=== PATIENT | female | born 2000 | race Caucasian/White ===

== ENCOUNTER 2024-02-19 10:22 | Emergency (ER) | payer SELFPAY ==
[2024-02-19 10:30] VITALS: BP 117/70; PULSE 100; RESP 20; TEMP 36.6; O2SAT 98; BMI 31.6
--- NOTE | 2024-02-19 10:47 | ED_ITS ---
HPI - Seizure General Time Seen by Provider: 10:47 Date Seen: 02/19/24 Chief Complaint: Seizure Stated Complaint: seizure Time Seen by Provider: 02/19/24 10:43 Source: patient, family, RN notes reviewed, old records reviewed and spanish interpreter Mode of arrival: ambulatory Limitations: no limitations History of Present Illness HPI Narrative: 24-year-old female with history of seizure disorder who presents with seizure. Patient was seen through the spanish interpreter. Patient reports history of seizure disorder, reports she had 3 seizures today. Denies falls or injuries. Says that she has not been taking her Keppra for the last couple of days because she ran out. She has a bottle of Keppra with her the does have some pills in it, these are 750 mg tablets with instructions to take 2 tablets twice a day (1500 mg twice a day) and she does have some pills left, the date on this bottle is from January 04. Patient reports that she had another bottle of Keppra at a higher dose which was started recently but she ran out of those and has not been taking either medication for 2 days. These are her typical seizures. She complains of some neck pain, chest achiness, and headache which is not unusual after seizures for her. Related Data Previous Rx's ?Medication ?Instructions ?Recorded levetiracetam 1,000 mg tablet 2,000 mg (2 x 1,000 mg) PO BID 02/19/24 (Keppra) #120 tabs Allergies Allergy/AdvReac Type Severity Reaction Status Date / Time Penicillins Allergy Intermediate Difficulty Verified 02/19/24 10:27 Breathing Exam Narrative: Exam Narrative: General: Well-developed and well-nourished, no acute distress Head: Atraumatic and normocephalic Eyes: Pupils are equal reactive, extraocular motions intact, conjunctiva clear ENT: External nose and ears are normal, posterior pharynx without erythema or exudate Neck: No midline cervical tenderness, full spontaneous range of motion the neck, trachea midline, no adenopathy Heart: Regular rate and rhythm no murmurs or thrills Lungs: Clear to auscultation bilaterally without wheezes or crackles Abdomen: Soft, nontender, nondistended with active bowel sounds Musculoskeletal: No tenderness, deformity, or edema Neurologic: Awake, alert, and oriented x3, no gross focal neurologic deficits, cranial nerves intact as tested. Occasional myoclonic jerks but no consistent seizure activity. Psych: Mood and affect are appropriate Skin: No rashes Const: Vital Signs, click to edit/add: Vital Signs - 24 hr 02/19/24 10:30 Temperature 98 F Pulse Rate [Pulse Oximeter] 100 Respiratory Rate 20 Blood Pressure [Ri ght Upper Arm] 117/70 Pulse Oximetry 98 Course Course ED Course: Reviewed prior hospital admission from February 2023 which was for seizures, at that time patient was in her 2nd trimester and Keppra was increased to 1000 mg twice a day, follow-up with neurology with plan for EEG as an outpatient. Patient presents today with 3 seizures today. It appears her usual seizure pattern is about once a month. She says her seizures are brought on by ?stress? and also notes that she has not taken her seizure medicine for 2 days. On exam here, patient is mildly tachycardic but otherwise finally stable. She is awake and alert, no focal neurologic deficits, occasional generalized myoclonic movements predominantly of the upper extremities. Labs ordered to evaluate for other cause of patient's seizures although most likely this is related to medication noncompliance. Patient will be loaded with Keppra in the emergency department and prescription will be written. Patient will need to follow-up with neurology clinic, has been seen by [facility] in the past. EKG independently interpreted by me performed at 10:53 a.m. demonstrates sinus tachycardia rate 106, no acute ST elevations or depressions, normal intervals, normal axis, QTC 414, MO 166. No prior for comparison Reevaluation(s) Time of Reevaluation #1: 11:56 Reevaluation #1: Labs independently interpreted by me with normal CBC, normal basic panel, normal hepatic panel other than slightly elevated AST and ALT, normal magnesium, normal urinalysis. Alcohol level is negative. Patient remains stable in the emergency department. If remaining labs including D-dimer reassuring, patient will be discharged and should restart her Keppra, follow-up with neurology. Time of Reevaluation #2: 12:10 Reevaluation #2: Labs independently interpreted by me is negative D-dimer. Patient is stable for discharge. Seizure today is likely due to medication noncompliance and patient was given Keppra load as well as oral Keppra for home. Vital Signs Vital signs: Initial Vital Signs Temperature 98 F 02/19/24 10:30 Temperature Source Temporal Artery Scan 02/19/24 10:30 Pulse Rate 100 02/19/24 10:30 Respiratory Rate 20 02/19/24 10:30 Blood Pressure 117/70 02/19/24 10:30 Blood Pressure Mean 85 02/19/24 10:30 Pulse Oximetry 98 02/19/24 10:30 Vital Signs Temperature 98 F 02/19/24 10:30 Pulse Rate 100 02/19/24 10:30 Respiratory Rate 20 02/19/24 10:30 Blood Pressure 117/70 02/19/24 10:30 Pulse Oximetry 98 02/19/24 10:30 Temperature 98 F 02/19/24 10:30 Pulse Rate 100 02/19/24 10:30 Respiratory Rate 20 02/19/24 10:30 Blood Pressure 117/70 02/19/24 10:30 Pulse Oximetry 98 02/19/24 10:30 Medications Administered Medications: Discontinued Medications Generic Name Dose Route Start Last Admin Trade Name Freq PRN Reason Stop Dose Admin Levetiracetam 2,000 mg/ Sodium 120 mls @ 480 mls/hr 02/19/24 11:15 02/19/24 11:52 Chloride IVPB 02/19/24 11:16 480 mls/hr ONCE ONE Administration Ketorolac Tromethamine 15 mg 02/19/24 11:15 02/19/24 11:46 Ketorolac 15 Mg/Ml Inj IVP 02/19/24 11:16 15 mg ONCE ONE Administration Lorazepam 0.5 mg 02/19/24 11:16 02/19/24 11:49 Lorazepam 2 Mg/Ml Inj IVP 02/19/24 11:17 0.5 mg ONCE ONE Administration MDM - Seizure Lab Data Labs: Lab Results 02/19/24 02/19/24 Range/Units 11:21 11:35 WBC 8.67 (4.50-11.00) K/uL RBC 4.56 (4.00-5.20) m/uL Hgb 13.9 (12.0-16.0) gm/dL Hct 40.3 (33.0-51.0) % MCV 88 (80-100) fL MCH 31 (26-34) pg MCHC 35 (32-36) gm/dL RDW Coeff of Robbie 12.1 (11.5-15.5) % Plt Count 212 (140-440) K/uL Neut % (Auto) 76.8 H (42.0-72.0) % Lymph % (Auto) 15.6 L (20-44) % [place] % (Auto) 6.6 (0.0-11.0) % Eos % (Auto) 0.5 (0.0-7.0) % Baso % (Auto) 0.2 (0.0-3.0) % Neut # (Auto) 6.70 (1.7-7.0) K/uL Lymph # (Auto) 1.40 (0.90-2.90) K/uL [place] # (Auto) 0.60 (0.00-0.90) K/UL Eos # (Auto) 0.04 (0.00-0.50) K/uL Baso # (Auto) 0.02 (0.00-0.30) K/uL Abs Immat Gran (auto) 0.03 (0.00-0.30) K/uL Imm/Tot Granulo (auto) 0.3 % D-Dimer Quant (PE/DVT) 0.29 (0.00-0.50) ug/ml Sodium 139 (135-149) mmol/L Potassium 4.1 (3.6-5.1) mmol/L Chloride 106 (96-114) mmol/L Carbon Dioxide 25 (20-32) mmol/L Anion Gap 8 (7-15) mEq/L BUN 8 (5-24) mg/dL Creatinine 0.5 (0.5-1.5) mg/dL Estimated Creat Clear 124.62 Estimated GFR 134 ml/min Glucose 104 (60-115) mg/dL Calcium 9.1 (8.4-10.6) mg/dL Magnesium 2.3 (1.5-2.6) mg/dL Total Bilirubin 1.1 (0.1-1.5) mg/dL Direct Bilirubin 0.2 (0.0-0.5) mg/dL AST 72 H (12-35) U/L ALT 138 H (4-35) U/L Alkaline Phosphatase 72 (40-150) U/L Total Protein 7.2 (6.0-8.3) g/dL Albumin 4.4 (3.3-5.0) g/dL Urine Color Yellow (Yellow) Urine Appearance Clear (Clear) Urine pH 8.5 (5.0-8.5) Ur Specific [place] 1.025 (1.000-1.030) Urine Protein Negative (Negative) Urine Glucose (UA) Negative (Negative) Urine Ketones Negative (Negative) Urine Blood Negative (Negative) Urine Nitrite Negative (Negative) Urine Bilirubin Negative (Negative) Urine Urobilinogen 4.0 A (0.2-1.0) Ur Leukocyte Esterase Negative (Negative) Urine RBC 0-2 (0-2) Urine WBC 0-2 (0-5) Ur Squamous Epith Cells None (None-Few) Amorphous Sediment Moderate A (None) Urine Bacteria Few A (None) Urine HCG, Qual Negative (Negative) Ethyl Alcohol < 0.00 L (0.01-0.03) % Discharge Plan Discharge Clinical Impression: Seizure disorder, Noncompliance Patient Disposition: Home, Self-Care Condition: Stable Instructions: Epilepsy (DC) Additional Instructions: Restart your seizure medication. Call [facility] to re-establish care [phone] or operate heavy machinery for 6 months or until you have been released to drive by your neurologist Do not do activities that would put you at risk if you were to have a seizure, including but not limited to bicycling, swimming, climbing ladders Activity Level: Other Discharge Diet: Regular Prescriptions: New levetiracetam [Keppra] 1,000 mg tablet 2,000 mg PO BID Qty: 120 0RF Discontinued levetiracetam [Keppra] 750 mg tablet 1,500 mg PO BID Follow Up/Referrals: Provider,Not a Local [Primary Care Provider] - Stand Alone Forms: [facility] Info Instructions
[2024-02-19 11:28] LABS: Basophils Absolute Auto 0.02 K/uL (0.00-0.30); Basophils Percent Auto 0.2 % (0.0-3.0); Eosinophils Absolute Auto 0.04 K/uL (0.00-0.50); Eosinophils Percent Auto 0.5 % (0.0-7.0); Hematocrit 40.3 % (33.0-51.0); Hemoglobin* 13.9 gm/dL (12.0-16.0); Immature Granulocytes Abs Auto 0.03 K/uL (0.00-0.30); Immature Granulocytes Pct Auto 0.3 %; Lymphocytes Percent Auto 15.6 % (20-44); Mean Corpuscular HGB Conc 35 gm/dL (32-36); Mean Corpuscular Hemoglobin 31 pg (26-34); Mean Corpuscular Volume 88 fL (80-100); Monocytes Percent Auto 6.6 % (0.0-11.0); Neutrophils Percent Auto 76.8 % (42.0-72.0); Platelet Count* 212 K/uL (140-440); RDW Coefficient of Variation % 12.1 % (11.5-15.5); Red Blood Count 4.56 m/uL (4.00-5.20); White Blood Count* 8.67 K/uL (4.50-11.00)
[2024-02-19 11:32] LABS: Slide Review Reflex No
[2024-02-19 11:45] LABS: Albumin* 4.4 g/dL (3.3-5.0); Chloride* 106 mmol/L (96-114)
[2024-02-19 11:46] LABS: Appearance Urine Clear (Clear); Bilirubin Urine Negative (Negative); Blood Urine Negative (Negative); Color Urine Yellow (Yellow); Glucose Urine Negative (Negative); Ketones Urine Negative (Negative); Leukocyte Esterase Urine Negative (Negative); Nitrite Urine Negative (Negative); Protein Urine Negative (Negative); Specific Gravity Urine 1.025 (1.000-1.030); pH Urine 8.5 (5.0-8.5)
[2024-02-19 11:46] LABS: Potassium* 4.1 mmol/L (3.6-5.1); Sodium* 139 mmol/L (135-149)
[2024-02-19] MEDS: KETOROLAC 15 MG/ML inj IVP (11:46)
[2024-02-19 11:48] LABS: Anion Gap 8 mEq/L (7-15); Aspartate Amino Transferase* 72 U/L (12-35); Bilirubin Direct* 0.2 mg/dL (0.0-0.5); Bilirubin Total* 1.1 mg/dL (0.1-1.5); Blood Urea Nitrogen* 8 mg/dL (5-24); Carbon Dioxide* 25 mmol/L (20-32); Creatinine* 0.5 mg/dL (0.5-1.5); Est. Creatinine Clearance* 124.62; Estimated Glomerular Filt Rate 134 ml/min; Total Protein* 7.2 g/dL (6.0-8.3)
[2024-02-19 11:49] LABS: Alanine Aminotransferase* 138 U/L (4-35); Alkaline Phosphatase* 72 U/L (40-150); Calcium* 9.1 mg/dL (8.4-10.6); Glucose* 104 mg/dL (60-115); Magnesium* 2.3 mg/dL (1.5-2.6)
[2024-02-19] MEDS: LORazepam 2 MG/ML inj 0.5 MG IVP (11:49)
[2024-02-19 11:50] LABS: Ethanol* < 0.00 % (0.01-0.03)
[2024-02-19 11:52] LABS: Amorphous Sediment Urine Moderate; Bacteria Urine Few; RBC Urine 0-2 (0-2); WBC Urine 0-2 (0-5)
[2024-02-19 11:57] LABS: Ur HCG Qualitative* Negative (Negative)
[2024-02-19 12:00] VITALS: BP 117/73; PULSE 101; RESP 18; TEMP 36.8; O2SAT 99
[2024-02-19 12:05] LABS: D Dimer Quantitative* 0.29 ug/ml (0.00-0.50)
[2024-02-21 01:00] LABS: Keppra (Levetiracetam) <2 ug/mL (10-40)
== END 2024-02-19 12:41 | disposition home or self-care (01) ==
PROVIDERS: Emergency Provider Family Medicine
DX: R56.9 Unspecified convulsions (principal); Z91.199 Patient's noncompliance with other medical treatment and regimen due to unspecified reason
CPT/HCPCS: 36415; 80048; 80076; 80177; 81001; 81025; 82077; 83735; 85025; 85379; 87086; 93005; 96365; 96375; 99284; J1885; J1953; J2060